=== PATIENT | male | born 1980 | race Caucasian/White ===

== ENCOUNTER → 2021-04-09 | Outpatient (CLI) | payer OTHER ==
[2021-04-09 11:27] LABS: HEMOGLOBIN 12.5 g/dL (14.0-18.0)
[2021-04-09 11:40] LABS: INR 2.02; PROTHROMBIN TIME 23.6 seconds (11.9-14.5)
[2021-04-09 11:41] LABS: PARTIAL THROMBOPLASTIN TIME 42.9 seconds (23.8-35.5)
== END ==
LOC: US 10:56
PROVIDERS: ATTEND Otolaryngology
DX: E04.1 Nontoxic single thyroid nodule (principal)
CPT/HCPCS: 10005; 36415; 85014; 85049; 85610; 85730; 88112; 88172; 88173; 88305